=== PATIENT | female | born 1970 | race African-American/Black ===

== ENCOUNTER 2016-09-08 18:04 | Emergency (ER) | payer BC ==
[~2016-09-08] VITALS: Ht 160 cm; Wt 54.0 kg
[2016-09-08] MEDS ORDERED: ONDANSETRON ODT 4 MG TAB.RAPDIS SL ONE (19:30)
[2016-09-08] MEDS ORDERED: HYDROCODONE/APAP 5-325MG TABLET PO ONE (19:30)
[2016-09-08] MEDS ORDERED: ONDANSETRON ODT 4 MG TAB.RAPDIS ONE (19:41)
[2016-09-08] MEDS ORDERED: HYDROCODONE/APAP 5-325MG TABLET ONE (19:41)
--- NOTE | 2016-09-08 20:53 | NUR ---
Patient discharged to home in stable conditon. Written and verbal after care instructions given. Patient verbalizes understanding of instructions.
== END 2016-09-08 20:54 | disposition home or self-care (01) ==
LOC: ER 18:06
DX: M54.2 Cervicalgia (principal); M25.512 Pain in left shoulder; V89.2XXA Person injured in unspecified motor-vehicle accident, traffic, initial encounter; Y93.89 Activity, other specified; Y99.8 Other external cause status; Y92.89 Other specified places as the place of occurrence of the external cause
CPT/HCPCS: 72125; 73030; A4663; Q0162